=== PATIENT | male | born 1950 | race Caucasian/White ===

== ENCOUNTER 2017-11-28 04:02 | Inpatient (IN) | payer BC, MEDICARE ==
[~2017-11-28] VITALS: Ht 175.3 cm; Wt 111.3 kg
[2017-11-28] MEDS ORDERED: KETOROLAC TROMETHAMINE 30 MG/ML VIAL IV STA (04:20)
[2017-11-28 04:34] LABS: BASOPHILS # (AUTO) 0.1 (0.0-0.1); BASOPHILS % 0.4 % (0.0-1.0); EOSINOPHILS # (AUTO) 0.3 (0.0-0.4); EOSINOPHILS % 1.7 % (0.0-6.0); HEMATOCRIT 44.5 % (38.2-49.6); HEMOGLOBIN 15.2 g/dL (14.0-18.0); LYMPHOCYTES # (AUTO) 2.1 (1.0-3.2); LYMPHOCYTES % 13.9 % (18.0-39.1); MEAN CORPUSCULAR HEMOGLOBIN 29.3 pg (28-32); MEAN CORPUSCULAR HGB CONC 34.2 g/dL (31-35); MEAN CORPUSCULAR VOLUME 85.7 fL (81-99); MONOCYTES # (AUTO) 0.8 (0.2-0.8); NEUTROPHILS # (AUTO) 11.7 (2.1-6.9); NEUTROPHILS % 78.5 % (38.7-80.0); PLATELET COUNT 258 x10e3/uL (140-360); RED BLOOD COUNT 5.19 x10e6/uL (4.3-5.7); RED CELL DISTRIBUTION WIDTH 13.2 % (11.7-14.4)
[2017-11-28 04:40] LABS: BILIRUBIN,URINE NEGATIVE (NEGATIVE); CLARITY,URINE CLEAR (CLEAR); COLOR,URINE YELLOW (YELLOW); KETONES,URINE NEGATIVE (NEGATIVE); LEUKOCYTE ESTERASE ,URINE NEGATIVE (NEGATIVE); NITRITE,URINE NEGATIVE (NEGATIVE); PROTEIN,URINE DIPSTICK 2+ (NEGATIVE); URINE UROBILINOGEN 0.2 mg/dL (0.2 - 1)
[2017-11-28 04:53] LABS: ALBUMIN 3.8 g/dL (3.5-5.0); ALBUMIN/GLOBULIN RATIO 0.9 (0.8-2.0); ANION GAP 14.8 mmol/L (8-16); CALCIUM 10.4 mg/dL (8.4-10.2); CREATININE, SERUM 1.37 mg/dL (0.72-1.25); POTASSIUM 4.8 mmol/L (3.5-5.1)
[2017-11-28 04:58] LABS: BACTERIA,URINE FEW /HPF; EPITHELIAL CELLS,URINE RARE /LPF; RBC,URINE 21-50 /HPF (0-5); WBC,URINE (MAN) 0-5 /HPF (0-5)
--- NOTE | 2017-11-28 05:33 | Diagnostic Imaging Report ---
EXAM: CT ABDOMEN/PELVIS WO DATE: 11/28/2017 4:20 AM INDICATION: ] Flank pain COMPARISON: None TECHNIQUE: The abdomen and pelvis were scanned using a multidetector helical scanner. Coronal and sagittal reformations were obtained. Routine protocol performed. IV Contrast: 0 ml Isovue 300/370 FINDINGS: Lack of IV contrast decreases sensitivity in evaluating abdominal and pelvic organs. LOWER THORAX: No consolidations. Coronary artery calcification. LIVER/BILIARY: No masses. No ductal dilatation. GALLBLADDER: Unremarkable SPLEEN: Unremarkable PANCREAS: Unremarkable ADRENALS: No nodules KIDNEYS: Punctate bilateral nonobstructing renal calculi. Mild to moderate left hydroureteronephrosis related to a mid ureteral stone measuring 10 mm craniocaudal dimension. Associated perinephric and periureteral inflammatory changes. -2.1 cm benign-appearing right superior renal cystic lesion. -There is a 2.2 cm right interpolar renal cystic lesion (HU 26) with faint peripheral high density or mineralization along the wall (image 81), incompletely characterized on this noncontrast evaluation. GI TRACT: Small hiatal hernia. No wall thickening or evidence of obstruction. Diverticulosis. The appendix is normal. VESSELS: Unremarkable PERITONEUM/RETROPERITONEUM: No free air or fluid LYMPH NODES: No lymphadenopathy REPRODUCTIVE ORGANS/BLADDER: Unremarkable SOFT TISSUES: Unremarkable BONES: Scattered degenerative changes. IMPRESSION: 1. Right mid ureteral calculus (10 mm) causing mild to moderate hydroureteronephrosis and inflammatory changes. 2. Mildly complex right renal cystic lesion, incompletely characterized. Consider follow-up renal ultrasound or nonemergent CT renal mass protocol. Signed by: Dr Rosaura Kapadia MD on 11/28/2017 5:30 AM
[2017-11-28] MEDS ORDERED: ONDANSETRON HCL INJ 2 MG/ML VIAL IV PRN (06:15)
[2017-11-28] MEDS ORDERED: HYDROMORPHONE 1MG/1ML INJ IV PRN (06:15)
[2017-11-28] MEDS ORDERED: CEFTRIAXONE SOD 1 GM VIAL IV ONE (06:15)
[2017-11-28 07:00] VITALS: BP 171/74
[2017-11-28] MEDS: SODIUM CHLORIDE 0.9% 1000ML 1,000 ML IV SCH ×3 (07:32→22:15)
[2017-11-28] MEDS: CEFTRIAXONE SOD 1 GM VIAL IV SCH (07:32)
[2017-11-28 08:01] VITALS: BP 171/74
[2017-11-28] MEDS ORDERED: CLONIDINE HCL 0.1 MG/24 HR 1 EA PATCH TOP PRN (08:30)
[2017-11-28] MEDS ORDERED: ACETAMINOPHEN/CODEINE 300MG - 30MG TAB PO PRN (08:30)
[2017-11-28] MEDS ORDERED: ACETAMINOPHEN 325 MG TAB PO PRN (08:30)
--- NOTE | 2017-11-28 08:56 | History and Physical ---
Patient of Dr. Garcia, Dr. Henrry Pierre. A 67-year-old gentleman admitted with right flank pain. History of urinary frequency. Recently found to have a right ureteral stone. He had a stone 30 years ago, which was removed endoscopically. History of hypertension, renal colic. Hypertensive for the last year. FAMILY HISTORY: Positive for cancer. Smokes 2 cigars a day. Used to smoke cigarettes, a pack a day. Retired logistics worker. ALLERGIES: SULFA. Believes he takes amlodipine. He was born in [place], [place]. Denies weight loss and fever. He has flank pain, urinary frequency. He has been hypertensive. PHYSICAL EXAMINATION GENERAL: He is a burly white male in no acute distress. VITALS: Temperature 99.4, blood pressure on admission 204/98, pulse 63, respirations 18. HEENT: Head is normocephalic and atraumatic. Eyes: Extraocular movements intact. LUNGS: Clear. HEART: Regular rhythm. ABDOMEN: Nontender. No CVA tenderness. EXTREMITIES: Nonedematous. IMPRESSION 1. Renal colic. 2. Hydronephrosis, right. PLAN: opinion. Empiric antibiotics. Control hypertension. Case discussed with Dr. Pierre who will see him this morning. Job#: [id number]
--- NOTE | 2017-11-28 09:13 | Consultation ---
DATE OF CONSULTATION: November 28, 2017 UROLOGY CONSULTATION REASON FOR CONSULTATION: Obstructing ureterolithiasis. HISTORY OF PRESENT ILLNESS: Zac Herrmann is a 67-year-old man who had a previous kidney stone 34 years ago. He had what sounds like a ureteroscopic procedure. He does not recall having a stent at that time. The patient denies hematuria, dysuria, or any recent problems with urolithiasis. He had severe right-sided flank pain and reported to the emergency room. He was found to have obstructing ureterolithiasis and was subsequently admitted. PAST MEDICAL AND SURGICAL HISTORY 1. 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 2. Status post bilateral cataract surgery. 3. Hypertension. 4. Possible hypercholesterolemia. ALLERGIES: SULFA. CURRENT MEDICATIONS: Please refer to the MAR. SOCIAL HISTORY: The patient is retired from working in [employer]. He quit smoking cigarettes 3 years ago. He smokes cigars. He denies ethanol or drug use. FAMILY HISTORY: Noncontributory to the active urological problems. REVIEW OF SYSTEMS: As discussed above in the history of present illness and past medical history, otherwise negative for all other systems. PHYSICAL EXAMINATION GENERAL: A healthy-appearing, 67-year-old man lying in bed in no apparent distress. VITAL SIGNS: He is currently afebrile, and the vital signs are currently stable. ABDOMEN: Obese, soft. Nondistended and nontender without costovertebral angle tenderness. Kidneys are not palpable without hepatosplenomegaly. No obvious evidence of hernia. GENITOURINARY: Testes are descended bilaterally. Testes and epididymides bilaterally palpably normal. The patient has a normal uncircumcised male phallus with normal meatus without any lesion. RECTAL: Digital rectal examination is deferred at the present time. LABORATORY STUDIES: CT scan of the abdomen and pelvis reveals a 10-mm stone in the mid right ureter with hydroureteronephrosis. He also has punctate bilateral nephrolithiasis. He has a 2.1-cm, benign-appearing, right superior renal cyst. There is a 2.2-cm right interpolar cystic lesion with faint peripheral high density and mineralization that is more of a complex cyst in the right kidney as well. The patient's creatinine is elevated at 1.37. White blood cell count is elevated at 14,800. Hemoglobin is 15.2, and platelets are 258,000. Calcium is slightly elevated at 10.4. ASSESSMENT 1. Right ureterolithiasis. 2. Right hydroureteronephrosis. 3. Acute renal failure. 4. Hypercalcemia. 5. Leukocytosis. 6. Microscopic hematuria on urinalysis. 7. Bilateral punctate nephrolithiasis. 8. Right renal cyst. 9. Right complex renal cyst. 10. Obesity. 11. Right renal colic. 12. Microhematuria. PLAN 1. I will post the patient for tomorrow for cystoscopy and stent placement and indicated procedures. I feel the stone is probably not going to be amenable to ureteroscopy, and I think it may be too far to perform a ureteroscopy at this setting. We will plan on performing ureteroscopic stone management electively in several weeks. 2. Will recheck the labs in the morning. 3. Ongoing urological followup for metabolic stone workup will be in order. 4. I agree with continued IV antibiotics until resolution of his obstruction. Thank you very much for involving us in the care of your patient. We will be happy to follow him along with you, as well as an outpatient. Job#: [id number] cc:DR. ARVIZU
[2017-11-28 09:15] VITALS: BP 171/74
[2017-11-28] MEDS ORDERED: CLONIDINE HCL 0.1 MG/24 HR 1 EA PATCH TOP SCH (09:30)
[2017-11-28] MEDS: AMLODIPINE BESYLATE 5 MG TAB PO SCH (09:39)
[2017-11-28 12:29] VITALS: BP 150/78
--- NOTE | 2017-11-28 13:26 | Diagnostic Imaging Report ---
PROCEDURE: X-RAY CHEST, TWO VIEWS COMPARISON: CT abdomen and pelvis same date. INDICATIONS: HYDRONEPHROSIS, RT. KIDNEY STONE FINDINGS: Lungs are well-inflated. No focal consolidation, pleural effusion, or pneumothorax. Cardiomediastinal contour and pulmonary vasculature are within normal limits. No acute osseous abnormality. CONCLUSION: No acute cardiopulmonary abnormality. Dictated by: Anatoliy Mckeon M.D. on 11/28/2017 at 13:29 Electronically approved by: Anatoliy Mckeon M.D. on 11/28/2017 at 13:29
[2017-11-28 17:03] VITALS: BP_SYST 144; BP_SYST 156; BP_DIAS 67; BP_DIAS 76
[2017-11-28] MEDS ORDERED: ONDANSETRON HCL INJ 2 MG/ML VIAL ONE (19:35)
[2017-11-28] MEDS ORDERED: PROPOFOL IV EMULSION 10 MG/ML 20 ML VIAL ONE (19:35)
[2017-11-28] MEDS ORDERED: DEXAMETHASONE SOD PHOS INJ 4 MG/ML VIAL ONE (19:35)
[2017-11-28] MEDS ORDERED: LIDOCAINE HCL 2% LOCAL INJ 5 ML SDV VIAL INJ ONE (19:35)
[2017-11-28] MEDS ORDERED: SEVOFLURANE INHAL SOLN 250 ML PEN BTL ONE (19:35)
[2017-11-28 20:00] VITALS: BP 175/84
[2017-11-29] VITALS (7 sets, daily range): BP systolic 139–177; BP diastolic 69–92
[2017-11-29] MEDS: CEFTRIAXONE SOD 1 GM VIAL IV SCH (05:44)
[2017-11-29 06:08] LABS: BASOPHILS # (AUTO) 0.1 (0.0-0.1); BASOPHILS % 0.7 % (0.0-1.0); EOSINOPHILS # (AUTO) 0.4 (0.0-0.4); EOSINOPHILS % 4.7 % (0.0-6.0); HEMATOCRIT 43.4 % (38.2-49.6); HEMOGLOBIN 14.5 g/dL (14.0-18.0); LYMPHOCYTES # (AUTO) 2.7 (1.0-3.2); LYMPHOCYTES % 29.7 % (18.0-39.1); MEAN CORPUSCULAR HEMOGLOBIN 29.1 pg (28-32); MEAN CORPUSCULAR HGB CONC 33.4 g/dL (31-35); MEAN CORPUSCULAR VOLUME 87.1 fL (81-99); MONOCYTES # (AUTO) 0.5 (0.2-0.8); MONOCYTES % 5.9 % (4.4-11.3); NEUTROPHILS # (AUTO) 5.4 (2.1-6.9); NEUTROPHILS % 58.7 % (38.7-80.0); PLATELET COUNT 226 x10e3/uL (140-360); RED BLOOD COUNT 4.98 x10e6/uL (4.3-5.7); RED CELL DISTRIBUTION WIDTH 13.2 % (11.7-14.4)
[2017-11-29] MEDS: SODIUM CHLORIDE 0.9% 1000ML 1,000 ML IV SCH (06:47)
[2017-11-29 06:52] LABS: ALANINE AMINOTRANSFERASE 19 IU/L (0-55); ALBUMIN 3.4 g/dL (3.5-5.0); ALBUMIN/GLOBULIN RATIO 0.9 (0.8-2.0); ALKALINE PHOSPHATASE 81 IU/L (40-150); ANION GAP 11.4 mmol/L (8-16); BLOOD UREA NITROGEN 17 mg/dL (7-26); BUN/CREATININE RATIO 14 (6-25); CALCIUM 9.7 mg/dL (8.4-10.2); CARBON DIOXIDE 25 mmol/L (22-29); CHLORIDE 109 mmol/L (98-107); CREATININE, SERUM 1.19 mg/dL (0.72-1.25); EST GLOMERULAR FILTRATION RATE > 60 ML/MIN (60-); GLUCOSE 110 mg/dL (74-118); POTASSIUM 4.4 mmol/L (3.5-5.1); SODIUM 141 mmol/L (136-145)
[2017-11-29] MEDS ORDERED: IOPAMIDOL 610MG/1ML 300 MG/ML VIAL IV ONE (11:23)
[2017-11-29] MEDS ORDERED: BELLADONNA/OPIUM 30 MG SUPP RC ONE (13:14)
[2017-11-29] MEDS: AMLODIPINE BESYLATE 5 MG TAB PO SCH (17:10)
[2017-11-29] MEDS ORDERED: FENTANYL CITRATE/PF 100MCG/2 ML INJ ONE (17:41)
[2017-11-29] MEDS ORDERED: MIDAZOLAM HCL 2 MG/2 ML VIAL ONE (17:41)
[2017-11-30] VITALS: BP 162/74
[2017-11-30 04:00] VITALS: BP 140/74
[2017-11-30 05:24] LABS: BASOPHILS # (AUTO) 0.1 (0.0-0.1); BASOPHILS % 0.5 % (0.0-1.0); EOSINOPHILS # (AUTO) 0.4 (0.0-0.4); EOSINOPHILS % 4.5 % (0.0-6.0); HEMATOCRIT 39.3 % (38.2-49.6); HEMOGLOBIN 13.4 g/dL (14.0-18.0); LYMPHOCYTES # (AUTO) 2.4 (1.0-3.2); LYMPHOCYTES % 25.5 % (18.0-39.1); MEAN CORPUSCULAR HEMOGLOBIN 29.5 pg (28-32); MEAN CORPUSCULAR HGB CONC 34.1 g/dL (31-35); MEAN CORPUSCULAR VOLUME 86.4 fL (81-99); MONOCYTES # (AUTO) 0.6 (0.2-0.8); MONOCYTES % 6.2 % (4.4-11.3); NEUTROPHILS # (AUTO) 5.9 (2.1-6.9); NEUTROPHILS % 62.9 % (38.7-80.0); PLATELET COUNT 203 x10e3/uL (140-360); RED BLOOD COUNT 4.55 x10e6/uL (4.3-5.7); RED CELL DISTRIBUTION WIDTH 13.2 % (11.7-14.4)
[2017-11-30 05:39] LABS: ANION GAP 12.4 mmol/L (8-16); CALCIUM 9.2 mg/dL (8.4-10.2); CREATININE, SERUM 1.25 mg/dL (0.72-1.25); POTASSIUM 4.4 mmol/L (3.5-5.1)
[2017-11-30] MEDS: CEFTRIAXONE SOD 1 GM VIAL IV SCH (06:39)
[2017-11-30] MEDS: SODIUM CHLORIDE 0.9% 1000ML 1,000 ML IV SCH (06:39)
[2017-11-30 07:30] VITALS: BP 131/77
[2017-11-30 07:56] VITALS: BP 131/77
[2017-11-30] MEDS: AMLODIPINE BESYLATE 5 MG TAB PO SCH (09:30)
[2017-11-30 11:58] VITALS: BP 151/83
[2017-11-30] MEDS ORDERED: NORVASC5 MG PO (15:04)
[2017-11-30] MEDS ORDERED: TYLENOL # 31 EA PO (15:04)
[2017-11-30] MEDS ORDERED: FLOMAX0.4 MG PO ×2 (15:05→15:43)
[2017-11-30] MEDS ORDERED: LOSARTAN POTASS25 MG PO ×2 (15:07→15:41)
[2017-11-30] MEDS ORDERED: AMLODIPINE BESYL5 MG PO (15:40)
[2017-11-30] MEDS ORDERED: TYLENOL WITH C1 EACH PO (15:43)
[2017-11-30 16:05] VITALS: BP 153/87
--- NOTE | 2017-11-30 17:51 | Discharge Summary ---
A patient of Dr. Pak, Dr. Henrry Pierre. A charming 67-year-old gentleman admitted with right flank pain, history of urinary frequency of recent onset. Found to have a right ureteral one. Had a stone 30 years ago which was removed endoscopically. He has a history of hypertension last year. He has a history of childhood encephalopathy, tracheostomy. Family history is positive for cancer. He used to smoke cigarettes, a pack a day, now smokes cigars. He is a retired logistics worker. He was treated with Rocephin. Cultures were requested but not obtained. A right ureteral stent was placed by Dr. Pierre with relief of symptoms, and he is discharged to be followed by Dr. Pierre as an outpatient. He does have a renal cyst, and now he has a right ureteral stent. He is discharged on amlodipine 5 mg a day, losartan 25 mg, Tylenol No. 3 as needed, Flomax 0.4 once a day. Uric acid was normal at 6.6. Calcium was initially slightly elevated at 10.4 but fell to 9.2 with hydration. He was advised to discontinue his smoking habit. His right complex renal cyst is noted. This will also be followed by Dr. Pierre as an outpatient. He will follow up with . Thank you for this kind referral. Job#: [id number] EV
[2017-12-01] MEDS ORDERED: LOSARTAN POTASSIUM 25 MG TAB PO SCH (09:00)
--- NOTE | 2018-01-22 03:12 | Operative Report ---
DATE OF PROCEDURE: November 29, 2017 PREOPERATIVE DIAGNOSIS: Right hydronephrosis due to stone. POSTOPERATIVE DIAGNOSIS: Right hydronephrosis due to stone. OPERATIONS PERFORMED: 1. Cystourethroscopy with bilateral ureteral catheterization and retrograde ureteral pyelography. 2. Interpretation of retrograde ureteropyelography. 3. Supervision of fluoroscopy. No radiologist present. 4. Cystourethroscopy with insertion of right indwelling ureteral stents. ANESTHESIA: General. COMPLICATIONS: None. CLINICAL SUMMARY: Please refer to consultation dictation from the date prior to surgery. OPERATIVE PROCEDURE IN DETAIL: Informed consent was verified. Zac Herrmann was properly identified, taken to the operating room, placed on the cystoscopy table in supine position. Anesthesia was uneventfully begun. Patient then carefully and gently repositioned in dorsal lithotomy position with all pressure points well padded. His right genitalia were prepared and draped in usual sterile fashion. The 22.5-Sami cystoscope sheath with visual obturator in place was atraumatically inserted into patient's urethra. It was guided down the unremarkable distal urethra past the normal sphincteric region through the prostate bed which was significant for bilobar prostatic hypertrophy with visually obstructing lateral lobes and then severely elevated median lobe that was obstructing the bladder neck. Panendoscopy of the bladder revealed grade 1 trabeculations; but no tumors, no stones and no diverticula. There were bilateral ureteral orifices that were in their normal anatomical position. Ureteral catheter was used to cannulate each ureter and retrograde ureteropyelograms were performed. Interpretation of retrograde ureteropyelography: Contrast was instilled in retrograde fashion bilaterally. On the left hand side, there are no tumors, no stones and no diverticula. Unobstructed drainage was observed. On the right hand side, there was hydroureteronephrosis down to the level of the obstructing filling defect in the ureter. Significant amount of hydronephrosis was noted in the kidney. With cystoscopic and fluoroscopic guidance, a right-sided indwelling ureteral stent was then placed. It was coiled in patient's kidney as well as patient's bladder. The retaining suture was cut short. Patient's bladder was then drained. The cystoscope was withdrawn. Digital rectal examination revealed a 35-g prostate that is smooth, non-fluctuant without any nodules. Patient was then uneventfully reversed from anesthesia and taken to recovery room in stable condition. Explicit postoperative instructions were given. Will plan on performing the patient's next surgery as an outpatient. Patient will need a right ureteroscopy with laser lithotripsy and stent change. The patient also needs to have ongoing urological followup for not only his urinary stones, but his right renal mass. He was encouraged for ongoing urological followup. Job#: [id number] XENA
== END 2017-11-30 16:14 | disposition home or self-care (01) | DRG 694 ==
LOC: ER 04:02 → ERHOLD 06:25 → MED/SURG3 06:41
PROVIDERS: ADMIT Internal Medicine; ATTEND Internal Medicine
PROC: 0T788ZZ Dilation of Bilateral Ureters, Via Natural or Artificial Opening Endoscopic (ICD-10-PCS; 2017-11-29)
PROC: 0T768DZ Dilation of Right Ureter with Intraluminal Device, Via Natural or Artificial Opening Endoscopic (ICD-10-PCS; principal; 2017-11-29 13:24)
PROC: BT141ZZ Fluoroscopy of Kidneys, Ureters and Bladder using Low Osmolar Contrast (ICD-10-PCS; 2017-11-29 13:24)
DX: N13.2 Hydronephrosis with renal and ureteral calculous obstruction (principal); N20.2 Calculus of kidney with calculus of ureter; N17.9 Acute kidney failure, unspecified; E83.52 Hypercalcemia; N20.0 Calculus of kidney; E66.01 Morbid (severe) obesity due to excess calories; Z68.36 Body mass index [BMI] 36.0-36.9, adult; N23 Unspecified renal colic; I10 Essential (primary) hypertension; Z87.891 Personal history of nicotine dependence; N28.1 Cyst of kidney, acquired; F17.210 Nicotine dependence, cigarettes, uncomplicated
CPT/HCPCS: 36415; 71046; 74176; 74420; 80048; 80053; 81001; 83970; 84550; 85025; 93005; 96361; 99284; C2617; J0696; J1100; J1885; J2001; J2250; J2405; J7030

== ENCOUNTER → 2018-04-19 | Outpatient (CLI) | payer BC, MEDICARE ==
[~2018-04-19] MED LIST: AMLODIPINE BESYL5 MG PO; FLOMAX0.4 MG PO; LOSARTAN POTASS25 MG PO; NORVASC5 MG PO; TYLENOL # 31 EA PO; TYLENOL WITH C1 EACH PO
--- NOTE | 2018-04-19 13:51 | Diagnostic Imaging Report ---
EXAM: Abdomen 2 Views INDICATION: ^CALCULUS OF KIDNEY COMPARISON: CT abdomen and pelvis 11/28/2017 FINDINGS: Mild amount of stool in the colon. No dilated loops of small bowel. 7 mm calcification overlying the right iliac bone adjacent to the inferior sacroiliac joint. Few phleboliths in the pelvis are unchanged. No abnormal soft tissue masses. Mild degenerative changes in the lumbar spine and pelvis. IMPRESSION: Indeterminate calcification overlying the right iliac bone may represent interval migration of the right ureteral stone seen on CT from 11/28/2017. Signed by: Dr. Karen Haskins M.D. on 04/19/2018 1:47 PM
== END ==
LOC: RAD 12:30
PROVIDERS: ATTEND Urology
DX: N20.0 Calculus of kidney (principal)
CPT/HCPCS: 74018

== ENCOUNTER → 2018-07-31 | Outpatient (CLI) | payer BC, MEDICARE ==
--- NOTE | 2018-07-31 11:33 | Diagnostic Imaging Report ---
EXAM: Abdomen 1 Views INDICATION: Renal calculus. COMPARISON: [facility] 04/19/[address] Abdomen/Pelvis 11/28/17. FINDINGS: A faint calcification measuring 6 mm is seen overlying the right iliac bone adjacent to the inferior sacroiliac joint. No additional calcifications overlying the expected location of the ureters or left kidney. The right upper kidney is excluded from the field of view. Nonobstructive bowel gas pattern. No acute osseous abnormality. IMPRESSION: A faint calcification measuring 6 mm is seen overlying the right iliac bone adjacent to the inferior sacroiliac joint. This may represent a sclerotic bony focus (present on CT from 11/28/17 coronal series 401, image 80), rather than ureteral stone. A repeat CT may be considered for further evaluation given known prior proximal ureteral stone. No additional calcifications overlying the expected location of the ureters or left kidney. The right upper kidney is excluded from the field of view. Signed by: Dr. Floresita Bocanegra MD on 07/31/2018 11:30 AM
== END ==
LOC: RAD 09:56
PROVIDERS: ATTEND Urology
DX: N20.0 Calculus of kidney (principal)
CPT/HCPCS: 74018